=== PATIENT | female | born 1990 | race Two or more races ===

== ENCOUNTER 2023-07-05 08:46 | Emergency (ER) | payer MEDICAID ==
[~2023-07-05] VITALS: Ht 165.1 cm; Wt 92.5 kg
[2023-07-05 09:11] VITALS: BP 131/78; PULSE 87; RESP 18; TEMP 97.6; O2SAT 95
[2023-07-05] MEDS ORDERED: CEPH500C PO (09:29)
== END 2023-07-05 09:54 | disposition home or self-care (01) ==
LOC: ER 08:46
DX: S31.105D Unspecified open wound of abdominal wall, periumbilic region without penetration into peritoneal cavity, subsequent encounter (principal); Z79.899 Other long term (current) drug therapy; X58.XXXD Exposure to other specified factors, subsequent encounter